=== PATIENT | female | born 1995 | race Caucasian/White ===

== ENCOUNTER 2017-08-12 00:01 | Emergency (ER) | payer OTHER, MEDICAID ==
[~2017-08-12] VITALS: Ht 182.9 cm; Wt 122.5 kg
[~2017-08-12 00:01] MED LIST: HYDROCODONE-AP1 EAC6 PO; IBUPROFEN 800800 M1 PO; PENICILLIN V P500 MG PO
[2017-08-12 00:46] LABS: URINE BILIRUBIN NEGATIVE (Negative); URINE BLOOD TRACE (Negative); URINE CLARITY CLEAR; URINE COLOR YELLOW; URINE GLUCOSE-RANDOM NEGATIVE (Negative); URINE KETONES NEGATIVE (Negative); URINE LEUKOCYTES-REFLEX NEGATIVE (Negative); URINE NITRITE-REFLEX NEGATIVE (Negative); URINE PROTEIN NEGATIVE (Negative); URINE SPECIFIC GRAVITY >= 1.030 (1.005-1.030); URINE UROBILINOGEN 0.2 E.U./dl (0.2-1.0)
[2017-08-12] MEDS ORDERED: PROAIR HFA8.5 GM INH (01:04)
[2017-08-12] MEDS ORDERED: TRAMADOL 50 MG50 MG PO (01:04)
[2017-08-12] MEDS ORDERED: FLEXERIL PO (01:04)
[2017-08-12] MEDS ORDERED: PREDNISONE50 MG PO (01:11)
[2017-08-12 01:22] VITALS: BP 132/71
== END 2017-08-12 01:23 | disposition home or self-care (01) ==
LOC: M.ERS 00:01
PROVIDERS: Emergency Medicine
DX: M62.838 Other muscle spasm (principal); F17.210 Nicotine dependence, cigarettes, uncomplicated; Z88.5 Allergy status to narcotic agent

== ENCOUNTER 2018-05-18 16:44 | Emergency (ER) | payer OTHER ==
[~2018-05-18] VITALS: Ht 182.9 cm; Wt 113.4 kg
[~2018-05-18 16:44] MED LIST changes: +FLEXERIL PO; +PREDNISONE50 MG PO; +PROAIR HFA8.5 GM INH; +TRAMADOL 50 MG50 MG PO
[2018-05-18 17:11] VITALS: BP 136/79
[2018-05-18] MEDS ORDERED: BACTRIM DS TAB1 EACH PO (17:20)
== END 2018-05-18 17:31 | disposition home or self-care (01) ==
LOC: M.ERS 16:44
DX: L91.8 Other hypertrophic disorders of the skin (principal); F17.210 Nicotine dependence, cigarettes, uncomplicated; Z88.5 Allergy status to narcotic agent; Z98.890 Other specified postprocedural states; Z86.718 Personal history of other venous thrombosis and embolism